=== PATIENT | male | born 1995 | race Caucasian/White ===

== ENCOUNTER 2020-12-28 11:30 | Emergency (ER) | payer OTHER, BC ==
[2020-12-28] MEDS ORDERED: Ketorolac Tromethamine 30 MG/ML VIAL ONE (11:34)
[2020-12-28] MEDS ORDERED: Boostrix 0.5 ML (Tdap) VIAL ONE ×2 (11:40→11:56)
[2020-12-28] MEDS ORDERED: Morphine 4 MG/ML VIAL ONE (12:02)
[2020-12-28] MEDS ORDERED: Bacitracin 1 PK ONE ×2 (12:13→12:33)
== END 2020-12-28 13:19 | disposition home or self-care (01) ==
LOC: ERS 11:30
DX: S82.831A Other fracture of upper and lower end of right fibula, initial encounter for closed fracture (principal); S71.111A Laceration without foreign body, right thigh, initial encounter; S21.209A Unspecified open wound of unspecified back wall of thorax without penetration into thoracic cavity, initial encounter; S90.31XA Contusion of right foot, initial encounter; V23.9XXA Unspecified motorcycle rider injured in collision with car, pick-up truck or van in traffic accident, initial encounter; Z23 Encounter for immunization
CPT/HCPCS: 29515; 90471; 90715; 96374; 96375; J1885; J2270

== ENCOUNTER 2021-02-09 12:36 | Outpatient (CLI) | payer BC | END 2021-02-09 12:37 | disposition home or self-care (01) | LOC: SCSMRI 12:36 | PROVIDERS: ATTEND Orthopaedic Surgery | DX: S82.831A Other fracture of upper and lower end of right fibula, initial encounter for closed fracture (principal); R60.0 Localized edema ==